=== PATIENT | female | born 1980 | race Caucasian/White ===

== ENCOUNTER 2022-01-10 01:42 | Inpatient (IN) | payer MEDICAID ==
[2022-01-10] VITALS (9 sets, daily range): BP systolic 95–117; BP diastolic 56–79
[~2022-01-10] VITALS: Ht 157.5 cm; Wt 46.4 kg
[~2022-01-10 01:42] MED LIST: ACET-2119 PO; AZAT50TA35 PO; BALS750C PO; CHOL400T PO; FERR324T PO; FOLI0.4T6 PO; LORA1TAB PO; PER5325T PO; RIVA20TA PO; SYN0.088T PO; VITAMIN B 1 PO
[2022-01-10] MEDS ORDERED: heparin 10,000 units/1 ML INJ IV ONE ×2 (02:00→04:50)
[2022-01-10] MEDS: heparin 25,000 UNIT/250ml bag 250 ML IV SCH (02:00)
[2022-01-10 02:35] LABS: BASOPHILS % (AUTO) 0.3 % (0-1); EOSINOPHILS # (AUTO) 0.1 X10'3 (0-0.9); EOSINOPHILS % (AUTO) 0.4 % (0-6); HEMATOCRIT 25.6 % (35.0-45.0); HEMOGLOBIN 8.6 g/dl (12.0-16.0); LYMPHOCYTES # (AUTO) 1.6 X10'3 (1.1-4.8); LYMPHOCYTES % (AUTO) 11.1 % (21-51); MEAN CORPUSCULAR HEMOGLOBIN 27.4 PG (27.0-31.0); MEAN CORPUSCULAR HGB CONC 33.5 g/dL (33.0-36.5); MEAN CORPUSCULAR VOLUME 81.6 FL (78-98); MEAN PLATELET VOLUME 5.2 FL (7.4-10.4); NEUTROPHILS # (AUTO) 11.7 X10'3 (1.8-7.7); NEUTROPHILS % (AUTO) 81.2 % (42-75); PLATELET COUNT 547 X10'3 (140-440); RED BLOOD COUNT 3.14 X10'6 (4.20-5.60); WHITE BLOOD COUNT 14.4 X10'3 (4.5-11.0)
[2022-01-10 02:47] LABS: APTT 31 SECONDS (22-32)
[2022-01-10] MEDS ORDERED: acetaminophen 325mg tablet PO ONE (03:05)
[2022-01-10] MEDS ORDERED: HYDROmorphone 1 mg/ml syringe IV ONE (03:05)
[2022-01-10 03:17] LABS: ALANINE AMINOTRANSFERASE 12 U/L (12-78); ALBUMIN 1.4 G/DL (3.4-5.0); ALBUMIN/GLOBULIN RATIO 0.3 (1.1-1.5); ANION GAP 12 (8-16); ASPARTATE AMINO TRANSFERASE 17 U/L (10-37); BILIRUBIN,TOTAL 0.3 MG/DL (0.1-1.0); BLOOD UREA NITROGEN 4 MG/DL (7-18); BUN/CREATININE RATIO 7.8 (6.6-38.0); CALCIUM 7.6 MG/DL (8.5-10.1); CHLORIDE 102 MMOL/L (99-107); CREATININE 0.51 MG/DL (0.40-0.90); MAGNESIUM 1.4 MG/DL (1.5-2.4); SODIUM 137 MMOL/L (135-145); TOTAL CARBON DIOXIDE 23.2 MMOL/L (24-32); TOTAL PROTEIN 5.8 G/DL (6.4-8.2); eGFR > 90 ML/MIN
[2022-01-10 03:18] LABS: GLUCOSE 49 MG/DL (70-104)
[2022-01-10] MEDS ORDERED: dextrose 5%-normal saline 1,000 ML IV ONE (03:20)
[2022-01-10] MEDS ORDERED: piperacillin/tazo 3.375gm/50ml 50 ML IV ONE (04:20)
[2022-01-10] MEDS ORDERED: vancomycin/NS 1 GM ADD-VANTAGE 250 ML IV ONE (04:20)
[2022-01-10] MEDS ORDERED: magnesium hydroxide 30ml (MOM) UD suspension PO PRN (04:50)
[2022-01-10] MEDS ORDERED: heparin 25,000 UNIT/250ml bag 250 ML IV SCH (04:50)
[2022-01-10] MEDS ORDERED: morphine 2 MG/ML inj. syringe IV PRN ×2 (04:50→22:10)
[2022-01-10] MEDS ORDERED: mag hydrox/Alum hydrox/simeth 30ml oral suspension PO PRN (04:50)
[2022-01-10] MEDS ORDERED: ondansetron/PF 4mg/2ml inj IV PRN ×2 (04:50→22:10)
[2022-01-10] MEDS ORDERED: acetaminophen 325mg tablet PO PRN ×2 (04:50)
--- NOTE | 2022-01-10 05:40 | NUR ---
Got report from JEISON Macias in ED. VSS
--- NOTE | 2022-01-10 05:55 | NUR ---
2Pt came up on gurney from ED. Ambulated to bed. Heparin running at 800 units per hour. 0600 PTT DVT lab draw scheduled. B/S of 60 Pt asymptomatic, JEISON Deras resource to give glucose. 106/57 HR92 RR16 RA O2 97%
--- NOTE | 2022-01-10 06:20 | NUR ---
Problems reprioritized. Patient report given, questions answered & plan of care reviewed with JEISON Rivas.
[2022-01-10] MEDS ORDERED: dextrose 50%-water 50ml dispensing syringe IV ONE (06:21)
--- NOTE | 2022-01-10 06:45 | NUR ---
Patient in room [facility]. I have received report from JEISON Lo and had the opportunity to ask questions and assume patient care.
[2022-01-10] MEDS: dextrose 5%-1/2 normal saline 1,000 ML IV SCH ×3 (07:19→16:13)
[2022-01-10] MEDS: docusate sod 100mg capsule PO SCH ×2 (07:23→20:00)
[2022-01-10] MEDS: heparin 10,000 units/1 ML INJ IV PRN (08:20)
--- NOTE | 2022-01-10 12:06 | NUR ---
Problems reprioritized. Patient report given, questions answered & plan of care reviewed with Student Nurse.
[2022-01-10] MEDS: HYDROcodone/acetaminophen 10/325mg tab PO PRN (12:20)
[2022-01-10] MEDS ORDERED: NO HOME MEDS (12:35)
--- NOTE | 2022-01-10 12:36 | NUR ---
messase to dr nirav mejia "PAGER ID: [phone] MESSAGE: [id number] arthur [phone] Gluc 192, now 71, d51/2NS @100 has been infusing ~Evelyn hernandez [phone]"
[2022-01-10 15:18] LABS: APTT 42 SECONDS (22-32)
[2022-01-10] MEDS: piperacillin/tazo 4.5gm/100ml 100 ML IV SCH (16:31)
[2022-01-10] MEDS: morphine 2 MG/ML inj. syringe IV PRN ×2 (17:16→21:05)
--- NOTE | 2022-01-10 17:42 | NUR ---
message to dr nirav franks "PAGER ID: [phone] MESSAGE: [phone] arthur please consider ordering glucose checks and hypoglycemic protocol. thank you. [phone]"
--- NOTE | 2022-01-10 18:20 | NUR ---
Patient in room [facility]. I have received report from JEISON Rivas and had the opportunity to ask questions and assume patient care.
[2022-01-10] MEDS ORDERED: BUPIVAcaine 0.5% inj/PF 30 ML ONE (21:53)
[2022-01-10] MEDS ORDERED: LIDOcaine 1% 30ml preserv. free vial ONE (21:53)
[2022-01-10] MEDS ORDERED: ringers solution, lacted 1,000 ML IV SCH (22:10)
[2022-01-10] MEDS ORDERED: meperidine/PF 25mg/ml syringe IV PRN ×3 (22:10)
[2022-01-10] MEDS ORDERED: morphine 4 MG/ML inj SYRINge IV PRN (22:10)
[2022-01-10] MEDS ORDERED: proCHLORperazine 10 MG/2 ml inj IV PRN (22:10)
--- NOTE | 2022-01-10 22:29 | NUR ---
Pt being taken to OR on a bed. VSS Covid negative
[2022-01-10] MEDS ORDERED: rocuronium 10mg/ml inj IV ONE (22:36)
[2022-01-10] MEDS ORDERED: sevoflurane 250ml liquid IH ONE (22:36)
[2022-01-10] MEDS ORDERED: midazolam 1 mg/ML 2ml injection ONE (22:38)
[2022-01-10] MEDS ORDERED: fentaNYL/PF 50MCG/1 ML 2ML syringe ONE (22:38)
[2022-01-10] MEDS ORDERED: ketamine 50mg/5ml syringe ONE (22:40)
[2022-01-10 23:13] LABS: HEMATOCRIT 23.3 % (35.0-45.0); HEMOGLOBIN 7.4 g/dl (12.0-16.0); MEAN CORPUSCULAR HEMOGLOBIN 26.1 PG (27.0-31.0); MEAN CORPUSCULAR HGB CONC 31.9 g/dL (33.0-36.5); MEAN CORPUSCULAR VOLUME 81.8 FL (78-98); MEAN PLATELET VOLUME 5.3 FL (7.4-10.4); PLATELET COUNT 496 X10'3 (140-440); RED BLOOD COUNT 2.85 X10'6 (4.20-5.60); RED CELL DISTRIBUTION WIDTH 15.8 % (11.5-14.5); WHITE BLOOD COUNT 11.9 X10'3 (4.5-11.0)
[2022-01-10] MEDS ORDERED: sugammadex 200mg/2ml injection IV ONE (23:15)
[2022-01-10] MEDS ORDERED: HYDROmorphone 1 mg/ml syringe IV PRN (23:15)
--- NOTE | 2022-01-10 23:16 | NUR ---
Received from OR via BED, accompanied by Anesthesiologist HELIO and report given by Anesthesiolgist. PT. ARRIVED ON 10 L O2 VIA MASK. VSS.PT. RESTING. NO NOTICEABLE PAIN. AROUSABLE. . IV 18 G IN L. FA. LR INFUSING AT 100 ML/HR. WOUND AT PERIANAL ABCESS PACKED WITH GAUZE AND 4X4 WITH MESH PANTIES. MOVES ALL EXTREMITIES. LAURA FULLER. Addendum: 01/10/22 at 7045 by Nola Fuentes RN Amended: Links added.
[2022-01-10] MEDS ORDERED: dexamethasone sod phosphate 4mg/ml inj. ONE (23:21)
[2022-01-10] MEDS ORDERED: ondansetron/PF 4mg/2ml inj ONE (23:21)
--- NOTE | 2022-01-10 23:45 | NUR ---
PT. STATES 06/03 ANAL PAIN. PRN PAIN MEDICATION GIVEN. Addendum: 01/10/22 at 2346 by Nola Fuentes RN Amended: Links added.
[2022-01-11] VITALS (16 sets, daily range): BP systolic 90–139; BP diastolic 51–89
[2022-01-11] MEDS: morphine 2 MG/ML inj. syringe IV PRN
--- NOTE | 2022-01-11 00:04 | NUR ---
PT. CONTINUES TO REPORT PAIN. PRN MORPHINE GIVEN. VSS Addendum: 01/11/22 at 0005 by Nola Fuentes RN Amended: Links added.
--- NOTE | 2022-01-11 00:06 | NUR ---
REPORT CALLED TO CONNIE MCHUGH. VSS. RA. PAIN DECREASED AFTER 2 DOSES OF PRN PAIN MEDICATION. IV CONTINUES INFUSING LR IN L. 18 G IV IN FA. DRESSING CDI. ALL QUESTIONS ANSWERED, BED LOW. CALL LIGHT IN REACH. REMINDED RN OF HEPARIN ORDER FOR AM. PT. TOLERATED TRANSFER WELL. Addendum: 01/11/22 at 0018 by Nola Fuentes RN Amended: Links added.
--- NOTE | 2022-01-11 00:10 | NUR ---
Dr. Jackson wants patient started back on heparin drip at 0600. Labs ordered restart after DVT PTT results come back.
--- NOTE | 2022-01-11 00:10 | NUR ---
Pt came back up from OR at 0010. BP109/66 HR104 O2 sat 100% RA Changed dressing due to serosanguineous drainage. Blood Sugar 94 Has a temp of 100.8 will continue to monitor. Resting comfortably Addendum: 01/11/22 at 0126 by Zonia Llamas RN 100% sat on 2L of O2 not RA
[2022-01-11] MEDS: dextrose 5%-1/2 normal saline 1,000 ML IV SCH ×3 (00:23→17:14)
[2022-01-11] MEDS: piperacillin/tazo 4.5gm/100ml 100 ML IV SCH ×4 (00:29→23:05)
--- NOTE | 2022-01-11 01:27 | NUR ---
Pt satting 99% on 1L O2
[2022-01-11] MEDS: HYDROcodone/acetaminophen 5mg/325mg tablet PO PRN (05:49)
--- NOTE | 2022-01-11 06:36 | NUR ---
Problems reprioritized. Patient report given, questions answered & plan of care reviewed with JEISON Medrano.
[2022-01-11 06:59] LABS: BASOPHILS % (AUTO) 0 % (0-1); EOSINOPHILS % (AUTO) 0 % (0-6); HEMATOCRIT 26.6 % (35.0-45.0); HEMOGLOBIN 8.7 g/dl (12.0-16.0); LYMPHOCYTES # (AUTO) 0.6 X10'3 (1.1-4.8); LYMPHOCYTES % (AUTO) 5.1 % (21-51); MEAN CORPUSCULAR HEMOGLOBIN 26.7 PG (27.0-31.0); MEAN CORPUSCULAR HGB CONC 32.5 g/dL (33.0-36.5); MEAN PLATELET VOLUME 5.6 FL (7.4-10.4); MONOCYTES # (AUTO) 0.2 X10'3 (0-0.9); MONOCYTES % (AUTO) 1.5 % (2-12); NEUTROPHILS # (AUTO) 11.3 X10'3 (1.8-7.7); NEUTROPHILS % (AUTO) 93.4 % (42-75); PLATELET COUNT 521 X10'3 (140-440); RED BLOOD COUNT 3.25 X10'6 (4.20-5.60); RED CELL DISTRIBUTION WIDTH 15.6 % (11.5-14.5); WHITE BLOOD COUNT 12.1 X10'3 (4.5-11.0)
--- NOTE | 2022-01-11 07:00 | NUR ---
Received report from charge nurse.
[2022-01-11 07:06] LABS: ALBUMIN 1.3 G/DL (3.4-5.0); ANION GAP 4 (8-16); BLOOD UREA NITROGEN 3 MG/DL (7-18); BUN/CREATININE RATIO 5.2 (6.6-38.0); CALCIUM 7.6 MG/DL (8.5-10.1); CHLORIDE 103 MMOL/L (99-107); CREATININE 0.58 MG/DL (0.40-0.90); GLUCOSE 182 MG/DL (70-104); POTASSIUM 3.4 MMOL/L (3.5-5.1); SODIUM 138 MMOL/L (135-145); TOTAL CARBON DIOXIDE 30.7 MMOL/L (24-32); eGFR > 90 ML/MIN
[2022-01-11] MEDS: docusate sod 100mg capsule PO SCH ×2 (08:00→20:00)
[2022-01-11] MEDS: heparin 25,000 UNIT/250ml bag 250 ML IV SCH (08:04)
[2022-01-11] MEDS: heparin 10,000 units/1 ML INJ IV PRN (08:06)
[2022-01-11] MEDS: HYDROcodone/acetaminophen 10/325mg tab PO PRN ×3 (09:35→23:59)
--- NOTE | 2022-01-11 09:45 | NUR ---
pACKING REMOVED- QUITE A BIT. WOUND DRAINING BROWN RED FLUID. PT. EDUCATED ON SITZ BATH AND IS USING IT FOR 15 MIN. PAIN MEDICATION PROVIDED PRE- PROCEDURE
[2022-01-11] MEDS ORDERED: magnesium 2GM in 50ml NS 50 ML IV PRN (10:15)
[2022-01-11] MEDS ORDERED: potassium Cl 20 mEq SR tablet PO PRN (10:15)
[2022-01-11] MEDS ORDERED: magnesium 4gm in 100ml NS 100 ML IV PRN (10:15)
[2022-01-11] MEDS ORDERED: magnesium Cl slow-release 64mg tablet PO PRN (10:15)
[2022-01-11] MEDS ORDERED: potassium CL 10mEq/100ml bag 100 ML IV PRN (10:15)
[2022-01-11 11:25] LABS: MAGNESIUM 1.6 MG/DL (1.5-2.4)
--- NOTE | 2022-01-11 11:52 | NUR ---
Gave report to student nurse.
[2022-01-11] MEDS: potassium Cl 20 mEq SR tablet PO PRN ×2 (16:05→23:05)
[2022-01-11] MEDS: rivaroxaban 15mg tablet PO SCH (17:13)
--- NOTE | 2022-01-11 18:10 | NUR ---
Gave report to Zonia Arzola.
--- NOTE | 2022-01-11 18:20 | NUR ---
Patient in room [facility]. I have received report from JEISON Medrano and had the opportunity to ask questions and assume patient care.
[2022-01-11] MEDS: K and/or MAG REPLACEMENT MC SCH (20:00)
[2022-01-12] VITALS: BP 111/64
[2022-01-12] MEDS: dextrose 5%-1/2 normal saline 1,000 ML IV SCH ×2 (00:20→07:00)
[2022-01-12] MEDS: potassium Cl 20 mEq SR tablet PO PRN (04:05)
[2022-01-12] MEDS: HYDROcodone/acetaminophen 5mg/325mg tablet PO PRN (04:37)
[2022-01-12 06:20] LABS: BASOPHILS % (AUTO) 0.1 % (0-1); EOSINOPHILS % (AUTO) 0.1 % (0-6); HEMATOCRIT 25.1 % (35.0-45.0); HEMOGLOBIN 8.1 g/dl (12.0-16.0); LYMPHOCYTES # (AUTO) 1.2 X10'3 (1.1-4.8); LYMPHOCYTES % (AUTO) 13.9 % (21-51); MEAN CORPUSCULAR HEMOGLOBIN 26.4 PG (27.0-31.0); MEAN CORPUSCULAR HGB CONC 32.3 g/dL (33.0-36.5); MEAN CORPUSCULAR VOLUME 81.8 FL (78-98); MEAN PLATELET VOLUME 5.7 FL (7.4-10.4); MONOCYTES # (AUTO) 0.7 X10'3 (0-0.9); MONOCYTES % (AUTO) 7.3 % (2-12); NEUTROPHILS # (AUTO) 7.1 X10'3 (1.8-7.7); NEUTROPHILS % (AUTO) 78.6 % (42-75); PLATELET COUNT 525 X10'3 (140-440); RED BLOOD COUNT 3.07 X10'6 (4.20-5.60); RED CELL DISTRIBUTION WIDTH 15.4 % (11.5-14.5)
--- NOTE | 2022-01-12 06:20 | NUR ---
Problems reprioritized. Patient report given, questions answered & plan of care reviewed with JEISON Medrano.
[2022-01-12 06:22] LABS: ALBUMIN 1.3 G/DL (3.4-5.0); ANION GAP 4 (8-16); BLOOD UREA NITROGEN 5 MG/DL (7-18); BUN/CREATININE RATIO 10.9 (6.6-38.0); CALCIUM 7.6 MG/DL (8.5-10.1); CHLORIDE 105 MMOL/L (99-107); CREATININE 0.46 MG/DL (0.40-0.90); GLUCOSE 93 MG/DL (70-104); MAGNESIUM 1.5 MG/DL (1.5-2.4); POTASSIUM 3.7 MMOL/L (3.5-5.1); SODIUM 141 MMOL/L (135-145); TOTAL CARBON DIOXIDE 31.6 MMOL/L (24-32); eGFR > 90 ML/MIN
[2022-01-12 08:00] VITALS: BP 99/55
[2022-01-12] MEDS: docusate sod 100mg capsule PO SCH (08:00)
[2022-01-12] MEDS: K and/or MAG REPLACEMENT MC SCH (08:00)
[2022-01-12] MEDS: rivaroxaban 15mg tablet PO SCH (08:06)
[2022-01-12] MEDS: piperacillin/tazo 4.5gm/100ml 100 ML IV SCH (08:10)
[2022-01-12] MEDS ORDERED: HYDR-3965 PO ×3 (10:21→14:57)
[2022-01-12] MEDS ORDERED: AMOX-580 PO (10:21)
[2022-01-12] MEDS: HYDROcodone/acetaminophen 10/325mg tab PO PRN (10:37)
[2022-01-12 11:00] VITALS: BP 107/64
--- NOTE | 2022-01-12 11:29 | NUR ---
PAGER ID: [phone] MESSAGE: Need clarification of medications before discharge for Rosalia Monique. Please call Marcela [phone] to clarify. Thank you.
[2022-01-12] MEDS ORDERED: RIVA20TA PO (11:48)
[2022-01-12] MEDS ORDERED: RIVA15TA PO (11:48)
--- NOTE | 2022-01-12 13:39 | NUR ---
DISCHARGE NOTE: Discharge paperwork reviewed with pt. Medications, med. compliance, tools for organization, f/u care, possible ASE of medications discussed with pt. She knows she needs to f/u with PCP and get a referral to GI . Extra wound care supplies provided to pt. Home health arranged by CM. Pt. BF here to p/u pt. Pt. IVs DC'd by JONATHAN, cannulas intact, no s/sx bleeding noted, pressure bandage applied. Pt left with her belongings escorted by PUSHPA and JONATHAN downstairs. Pt. wanting medications transfer to [facility] in [place] although she can make it to [facility] in [place] on time. [facility] pharmacy called however they are on lunch. Pt. not willing to wait to have this resolved but would like RN to f/u after 2 pm and then call her cellphone. Pt. given a foam cushion to sit on, a sitz bath. Denies any belonging stored in pharmacy or safe. Requesting medical records to be sent to her house. Medical release formed filled out by pt. and faxed to medical record by primary RN. Confirmed with Manuel CUNNINGHAM while he was rounding on floor that he did not want any packing in wound.
--- NOTE | 2022-01-12 14:28 | NUR ---
PAGER ID: [phone] MESSAGE: Rosalia Mcfarlane [phone] Please send [place] to [facility] here in [place]. [facility] does not have antibiotic in stock until Saturday. They will wait here for medications. I can not transfer [place]. Marcela [phone]
--- NOTE | 2022-01-12 14:30 | NUR ---
Called [phone] and spoke with pt. Pt. will remain in town and wait for medication to get sent to [facility].
--- NOTE | 2022-01-12 14:52 | NUR ---
Spoke with Doctor Manisha on cell. States he will send [place] script to [facility] when preferred pharmacy changed. Preferred pharmacy changed. Called [facility] to verify that Dawson and antibiotic prescriptions will be canceled there and Xarelto can be filled there. Spoke with [facility] pharmacist. He sounded like he maybe had taken some of the prescriptions he fills and stated he was "short -staffed" and was not sure if he would be able to fill this because it was 1300 dollars and he didn't have insurance information. Let him know I would call pt. and request her to call him and give him insurance info. Called pt. She states she will call [facility] STAT and call this RN afterwards to let me know results.
--- NOTE | 2022-01-12 15:16 | NUR ---
Pt. called back stating insurance was taken by pharmacist [facility] in [facility] and that her insurance would cover Xaralto for pt. She is aware to get Michelle and Caity at [facility] and is on her way over there.
== END 2022-01-12 14:02 | disposition home or self-care (01) | DRG 720 ==
LOC: ER 01:43 → UNDOADMIN 04:47 → ED HOLD 04:47 → SUR 3N 05:50 → ED HOLD 05:50
PROVIDERS: ADMIT Internal Medicine; ATTEND Family Medicine
PROC: 0D9P3ZZ Drainage of Rectum, Percutaneous Approach (ICD-10-PCS; principal; 2022-01-10 22:36)
DX: A41.9 Sepsis, unspecified organism (principal); I82.220 Acute embolism and thrombosis of inferior vena cava; E43 Unspecified severe protein-calorie malnutrition; D68.51 Activated protein C resistance; K50.913 Crohn's disease, unspecified, with fistula; D64.9 Anemia, unspecified; B95.4 Other streptococcus as the cause of diseases classified elsewhere; E03.9 Hypothyroidism, unspecified; E06.3 Autoimmune thyroiditis; Z20.822 Contact with and (suspected) exposure to COVID-19; K92.1 Melena; E16.2 Hypoglycemia, unspecified; K61.1 Rectal abscess; Z79.01 Long term (current) use of anticoagulants; Z86.711 Personal history of pulmonary embolism; Z68.1 Body mass index [BMI] 19.9 or less, adult; Z91.14 Patient's other noncompliance with medication regimen; Z79.899 Other long term (current) drug therapy
CPT/HCPCS: 36415; 71045; 80047; 80048; 80053; 82948; 83605; 83735; 84145; 84443; 85025; 85027; 85610; 85730; 86885; 86900; 86901; 87040; 87070; 87075; 87076; 87077; 87081; 87185; 87186; 87635; 93005; 96360; 99291; A4618; A6253; A6449; A7000; G0378; J1100; J1170; J1644; J2175; J2250; J2270; J2405; J2543; J3010; J3370; J3490; J7042; S0020